=== PATIENT | female | born 1970 | race Caucasian/White ===

== ENCOUNTER 2017-09-19 13:00 | Outpatient (RCR) | payer OTHER ==
[2017-07-31 12:02] VITALS: BP 123/71
--- NOTE | 2017-08-02 09:51 | ONCOLOGY HISTORY AND PHYSICAL ---
DATE: July 31, 2017 CHIEF COMPLAINT Fatigue. HISTORY OF PRESENT ILLNESS Yenifer is a delightful 46-year-old female with metastatic estrogen receptor positive breast cancer, who has been followed by both Drs. Santizo and Dulce in the past. She lives here in [place], and she had recently expressed interest in following up for some routine visits as well as Xgeva injections here in [place], as opposed to driving to [facility] and back. The patient's oncologic history is below. Today, she reports that she feels pretty good, in general. She does have some ongoing fatigue, but this has been manageable. She denies significant pain. She has had no fever. Her appetite tends to be pretty good. She works significant hours at the hospital, and per her , she does not get much physical activity. Yenifer has been receiving Xeloda seven days on and seven days off, having started this regimen in mid June. REVIEW OF SYSTEMS Otherwise negative, and all systems are reviewed. ONCOLOGY HISTORY 1. Metastatic ER positive breast cancer. a. June 2009: Patient presents with left breast mass; biopsy on July 14, 2009 confirms malignancy. b. July 27, 2009: CT PET scan reveals a 2 cm hypermetabolic mass at the 3 o 'clock position in the left breast; no evidence of metastatic disease. c. July 29, 2009: Clip placement and port placement. d. July 2009: Patient initiates neoadjuvant Taxotere/cytoxan times four cycles. This was completed in September of 2009. e. October 27, 2009: Left breast lumpectomy/sentinel lymph node biopsy. Pathology reveals 1.6 cm invasive ductal carcinoma, intermediate histologic grade, high nuclear grade, also low grade DCIS comprising less than 5% of the lesion. There was no lymphovascular invasion. Margins were negative. All five sentinel lymph nodes were negative. Oncotype DX shows low risk of distant recurrence after five years; BCI study shows low likelihood of benefit from extended endocrine therapy. f. November,: Patient begins adjuvant radiation therapy, completed December 2009. g. December 2009: Patient begins adjuvant tamoxifen. Five years of treatment complete in 2014. h. July 30, 2017: Excisional biopsy of posterior scalp skin lesion. Pathology reveals poorly differentiated metastatic adenocarcinoma consistent with breast primary, ER positive 20%, WI positive at 71%, HER2 negative by IHC ( 1+). i. , 2017: CT PET: Interval development of extensive metastatic disease. j. July 02, 2017: Patient undergoes bilateral salpingo-oophorectomy for breast cancer treatment. k. July 09, 2017: Patient begins first-line capecitabine. l. July 16, 2017: Patient initiates denosumab injections. PAST MEDICAL HISTORY 1. Breast cancer, as above. 2. 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 3. Osteopenia. 4. Hyperparathyroidism. PAST SURGICAL HISTORY 1. Status post BSO on July 02, 2017. 2. Status post left lumpectomy and sentinel lymph node biopsy on October 27, 2009. 3. Status post port placement on July 29, 2009. 4. Status post left nephrectomy for Wilms tumor in 1975. CURRENT MEDICATIONS 1. Tylenol p.r.n. 2. Zyrtec p.r.n. 3. Singulair. 4. Cranberry tablet. 5. Calcium carbonate. 6. Vitamin D3. 7. [place]-3 fatty acids. 8. Multivitamin. ALLERGIES 1. Hydrocodone. 2. Acetaminophen. 3. Ibuprofen. 4. Terry wood. 5. Cat dander. 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 She is and lives in [place]. She has one daughter. She has never smoked cigarettes. She occasionally has a glass of wine. There is no history of illicit drug use. FAMILY HISTORY Patient reports that BRCA1/2 testing was negative in 2008. Her paternal aunt had reportedly of cancer in her late 30s or late 40s. There are no other first or second degree relatives with known cancers. VITAL SIGNS Temperature is 97.6, blood pressure 123/71, heart rate is 84, respirations 16, oxygen saturation is 94% on room air. Weight is 65.3 kg. PHYSICAL EXAMINATION GENERAL: Patient is alert and oriented times three, in no apparent distress sitting in the exam room chair. She is interactive and quite pleasant. HEENT: Exam reveals anicteric sclerae. NEUROLOGIC: Exam is grossly nonfocal and her gait is normal. EXTREMITIES: Exam reveals no edema, clubbing or cyanosis. There is no erythema or tenderness to palpation of the extremities. LABORATORY STUDIES Reviewed per the [facility] records. IMAGING Please see oncology history above. PATHOLOGY Please see oncology history above. ASSESSMENT AND PLAN Metastatic ER positive breast cancer. I had a good visit with Yenifer and her today. We spent time reviewing her oncologic history, as well as her recent experience after initiating palliative capecitabine. She seems to be tolerating treatment with reasonable/modest toxicity. She does report some ongoing fatigue. She is working long hours at the hospital. She is not getting much exercise, and we have discussed the importance of this, as well as healthful nutrition. We will be sure that arrangements are solid for her ongoing capecitabine, and we discussed her dosing scheme today. The dose will be escalated per Dr. Cradona, but the patient will be returning from [place] before that dosing increase happens. We will get her set for Xgeva injections here at [facility]. We spent a very significant amount of time today discussing her recent decision to have part of her follow-up care here in [place]. Her had expressed concern several times about quality of care and seeing a different medical oncologist. I believe I answered all of his questions to his satisfaction. The patient also had several further questions today, and I answered her questions as well. I will plan to see the patient back for followup in one month's time, or sooner if there are questions or concerns. Thank you very much, Dr. Cardona, for allowing me to take part in the care of this very pleasant patient. Please do not hesitate to call with any questions or concerns. I spent a total of 60 minutes of time face to face with the patient and her today. Fifty-five minutes of this was spent in direct counseling and coordination of care. LUIS
[2017-08-13 13:13] VITALS: BP 113/69
[2017-08-13 13:35] LABS: PLATELET COUNT, AUTOMATED 316 K/uL (150-450)
[~2017-09-19] VITALS: Ht 170.2 cm; Wt 65.3 kg
[~2017-09-19 13:00] MED LIST: ACET-1966 PO; ALB18R INH; ASP325 PO; ASPI81TA94 PO; CALC-18 PO; CETI-176 PO; CHOL500045 PO; CRAN500T; DOCU-416 PO; FLUT16SP19 NS; FLUT1BLS3 INH; LUTE6CAP11 PO; MONT10TA PO; MULT1CAP41 PO; OMEG500C5 PO; OMEP-218 PO; OXYC-865 PO; TAMO20TA19 PO
[2017-09-19] MEDS ORDERED: TRAZ150T8 PO (13:39)
[2017-09-19] MEDS ORDERED: DEXA2TAB7 PO (13:39)
[2017-10-22 13:59] LABS: PLATELET COUNT, AUTOMATED 296 K/uL (150-450)
== END 2017-10-28 ==
LOC: SPU 13:00
PROVIDERS: ATTEND Internal Medicine Medical Oncology
DX: Z85.3 Personal history of malignant neoplasm of breast (principal); R53.83 Other fatigue
CPT/HCPCS: 36415; 82040; 82247; 82310; 82374; 82435; 82565; 82947; 83735; 84075; 84100; 84132; 84155; 84295; 84450; 84460; 84520; 85025; 86300; 86304; 99202

== ENCOUNTER → 2017-10-22 | Outpatient (CLI) | payer OTHER ==
[~2017-10-22] MED LIST changes: +DENOSUMAB 120 MG/1.7 ML VIAL SUBQ ONE; +DEXA2TAB7 PO; +TRAZ150T8 PO
[2017-10-22 14:08] VITALS: BP 112/78
== END ==
LOC: SPU 11:28
PROVIDERS: ATTEND Internal Medicine Medical Oncology
DX: C50.912 Malignant neoplasm of unspecified site of left female breast (principal)
CPT/HCPCS: 36415; 96372; J0897

== ENCOUNTER → 2017-11-21 | Outpatient (CLI) | payer OTHER ==
[~2017-11-21] MED LIST changes: -DENOSUMAB 120 MG/1.7 ML VIAL SUBQ ONE
[2017-11-21 13:30] LABS: PLATELET COUNT, AUTOMATED 282 K/uL (150-450)
== END ==
LOC: SPU 07:40
PROVIDERS: ATTEND Internal Medicine Hematology & Oncology
DX: C50.412 Malignant neoplasm of upper-outer quadrant of left female breast (principal); C79.51 Secondary malignant neoplasm of bone; C77.1 Secondary and unspecified malignant neoplasm of intrathoracic lymph nodes
CPT/HCPCS: 36415; 82040; 82247; 82310; 82374; 82435; 82565; 82947; 83735; 84075; 84100; 84132; 84155; 84295; 84450; 84460; 84520; 85025; 86300; 86304

== ENCOUNTER → 2017-11-21 | Outpatient (CLI) | payer OTHER ==
[2017-10-22 14:08] VITALS: BP 112/78
[~2017-11-21] MED LIST changes: +DENOSUMAB 120 MG/1.7 ML VIAL SUBQ ONE
== END ==
LOC: SPU 07:38
PROVIDERS: ATTEND Internal Medicine Hematology & Oncology
DX: C50.919 Malignant neoplasm of unspecified site of unspecified female breast (principal)
CPT/HCPCS: 96372; J0897

== ENCOUNTER → 2017-12-19 | Outpatient (CLI) | payer OTHER ==
[2017-10-22 14:08] VITALS: BP 112/78
[~2017-12-19] MED LIST changes: +XELOD500PT PO
== END ==
LOC: SPU 08:08
PROVIDERS: ATTEND Internal Medicine Hematology & Oncology
DX: C50.919 Malignant neoplasm of unspecified site of unspecified female breast (principal)
CPT/HCPCS: 96372; J0897

== ENCOUNTER → 2018-01-23 | Outpatient (CLI) | payer OTHER ==
[~2018-01-23] MED LIST changes: +MELA1TAB15 PO; +MV M PO; +TURM500C7 PO; +UBID1CAP94 PO
[2018-01-23 13:33] VITALS: BP 101/54
== END ==
LOC: SPU 08:01
PROVIDERS: ATTEND Internal Medicine Medical Oncology
DX: C50.919 Malignant neoplasm of unspecified site of unspecified female breast (principal); C79.9 Secondary malignant neoplasm of unspecified site
CPT/HCPCS: 96372; J0897

== ENCOUNTER → 2018-01-23 | Outpatient (CLI) | payer OTHER ==
[~2018-01-23] MED LIST changes: -DENOSUMAB 120 MG/1.7 ML VIAL SUBQ ONE
[2018-01-23 13:36] LABS: PLATELET COUNT, AUTOMATED 294 K/uL (150-450)
== END ==
LOC: SPU 08:01
PROVIDERS: ATTEND Internal Medicine Hematology & Oncology
DX: C50.412 Malignant neoplasm of upper-outer quadrant of left female breast (principal); C79.51 Secondary malignant neoplasm of bone; C77.1 Secondary and unspecified malignant neoplasm of intrathoracic lymph nodes
CPT/HCPCS: 36415; 82040; 82247; 82310; 82374; 82435; 82565; 82947; 83735; 84075; 84100; 84132; 84155; 84295; 84450; 84460; 84520; 85025; 86300; 86304

== ENCOUNTER 2018-02-20 13:00 | Outpatient (RCR) | payer OTHER ==
[2017-12-19 13:23] VITALS: BP 110/76
[2017-12-19 13:30] LABS: PLATELET COUNT, AUTOMATED 282 K/uL (150-450)
[2018-01-15 13:07] VITALS: BP 120/72
--- NOTE | 2018-01-16 03:59 | ONCOLOGY FOLLOW UP NOTE ---
EVENT DATE: January 15, 2018 REASON FOR FOLLOWUP Metastatic ER positive breast cancer. INTERIM HISTORY Yenifer returns to clinic for a followup visit today. She is accompanied by her . She reports that since our last visit, things have been going pretty well in general. She does have some ongoing fatigue. She continues to work as a counselor. She reports no fevers, chills or sweats. In general, her appetite has been pretty good, and her weight has been stable. She reports no shortness of breath, chest pain or cough. She has had no changes in her bowel habits, denies new urinary symptoms. She continues on capecitabine as well as Xgeva. She has been followed in the interim by Dr. Cardona at the [facility] in [place]. Since our last visit, she had undergone followup imaging, which showed a very nice response to therapy. She has been encouraged by this. She reports that she thinks she is tolerating the Xeloda without any significant problems. REVIEW OF SYSTEMS Otherwise negative, and all systems are reviewed. ONCOLOGY HISTORY 1. Metastatic ER positive breast cancer. a. June 2009: Patient presents with left breast mass; biopsy on July 14, 2009 confirms malignancy. b. July 27, 2009: CT PET scan reveals a 2 cm hypermetabolic mass at the 3 o 'clock position in the left breast; no evidence of metastatic disease. c. July 29, 2009: Clip placement and port placement. d. July 2009: Patient initiates neoadjuvant Taxotere/Cytoxan times four cycles. This was completed in September of 2009. e. October 27, 2009: Left breast lumpectomy/sentinel lymph node biopsy. Pathology reveals 1.6 cm invasive ductal carcinoma, intermediate histologic grade, high nuclear grade, also low grade DCIS comprising less than 5% of the lesion. There was no lymphovascular invasion. Margins were negative. All five sentinel lymph nodes were negative. Oncotype DX shows low risk of distant recurrence after five years; BCI study shows low likelihood of benefit from extended endocrine therapy. f. November,: Patient begins adjuvant radiation therapy, completed December 2009. g. December 2009: Patient begins adjuvant tamoxifen. Five years of treatment complete in 2014. h. July 30, 2017: Excisional biopsy of posterior scalp skin lesion. Pathology reveals poorly differentiated metastatic adenocarcinoma consistent with breast primary, ER positive 20%, [place] positive at 71%, HER2 negative by IHC ( 1+). i. , 2017: CT PET: Interval development of extensive metastatic disease. j. July 02, 2017: Patient undergoes bilateral salpingo-oophorectomy for breast cancer treatment. k. July 09, 2017: Patient begins first-line capecitabine. l. July 16, 2017: Patient initiates denosumab injections. PAST MEDICAL HISTORY 1. Breast cancer, as above. 2. 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 3. Osteopenia. 4. Hyperparathyroidism. PAST SURGICAL HISTORY 1. Status post BSO on July 02, 2017. 2. Status post left lumpectomy and sentinel lymph node biopsy on October 27, 2009. 3. Status post port placement on July 29, 2009. 4. Status post left nephrectomy for Wilms tumor in 1975. CURRENT MEDICATIONS 1. Xeloda. 2. Trazodone. 3. Tylenol p.r.n. 4. Zyrtec p.r.n. 5. Singulair. 6. Cranberry tablet. 7. Calcium. 8. Vitamin D3. 9. Fish oil. 10. Multivitamin. ALLERGIES HYDROCODONE, IBUPROFEN, CEDAR WOOD, CAT DANDER. 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 She is and lives in [place]. She has one daughter. She has never smoked cigarettes. She occasionally has a glass of wine. There is no history of illicit drug use. FAMILY HISTORY Patient reports that BRCA1/2 testing was negative in 2008. Her paternal aunt had reportedly of cancer in her late 30s or late 40s. There are no other first or second degree relatives with known cancers. VITAL SIGNS Temperature is 96.7, blood pressure 120/72, heart rate is 79, respirations 16, oxygen saturation is 96% on room air. Weight is 66 kg. PHYSICAL EXAMINATION GENERAL: Patient is alert and oriented x 3, in no apparent distress sitting in the exam room chair. She is interactive and quite pleasant. HEENT: Exam reveals anicteric sclerae. NEUROLOGIC: Exam is grossly nonfocal and her gait is normal. EXTREMITIES: Exam reveals no edema, clubbing or cyanosis. There is no erythema or tenderness to palpation of the extremities. SKIN: Exam reveals no concerning rash or lesion. LABORATORY STUDIES Laboratory studies are reviewed per the [facility] records. ASSESSMENT AND PLAN Metastatic ER positive breast cancer. Yenifer continues to do quite well with ongoing palliative capecitabine as well as denosumab. she reports no new concerning symptoms today. She has had no hand/foot syndrome, and her gastrointestinal symptoms have been minimal. She continues to work. We discussed her prior followup with Dr. Cardona, as well as re-imaging, which has revealed a very nice response to ongoing treatment. As discussed, I would be more than happy to visit with her in the future to make sure things are going well, and to try to minimize travel back and forth between [place] and [place]. Yenifer requests that we visit again in April, as she does have re- imaging scheduled for February. We spent time reviewing her labs today, including tumor markers. We discussed the slight rise, and that this at this point is not a particular trend, but we will continue to monitor her labs closely. I do not think that this is reason to move up her re-imaging. We also discussed the importance of good nutrition and exercise. [facility]
[~2018-02-20 13:00] MED LIST changes: -DENOSUMAB 120 MG/1.7 ML VIAL SUBQ ONE
[2018-02-20 13:09] VITALS: BP 110/76
[2018-02-20 13:28] LABS: PLATELET COUNT, AUTOMATED 258 K/uL (150-450)
== END 2018-03-18 ==
LOC: SPU 13:00
PROVIDERS: ATTEND Internal Medicine Medical Oncology
DX: C50.412 Malignant neoplasm of upper-outer quadrant of left female breast (principal); Z17.0 Estrogen receptor positive status [ER+]; R53.83 Other fatigue; Z79.899 Other long term (current) drug therapy; Z92.21 Personal history of antineoplastic chemotherapy
CPT/HCPCS: 36415; 82040; 82247; 82310; 82374; 82435; 82565; 82947; 83735; 84075; 84100; 84132; 84155; 84295; 84450; 84460; 84520; 85025; 86300; 86304

== ENCOUNTER → 2018-02-20 | Outpatient (CLI) | payer OTHER ==
[~2018-02-20] MED LIST changes: +DENOSUMAB 120 MG/1.7 ML VIAL SUBQ ONE
== END ==
LOC: SPU 07:42
PROVIDERS: ATTEND Internal Medicine Medical Oncology
DX: C50.912 Malignant neoplasm of unspecified site of left female breast (principal)
CPT/HCPCS: 96372; J0897

== ENCOUNTER → 2018-03-25 | Outpatient (CLI) | payer OTHER ==
[~2018-03-25] MED LIST changes: +DENOSUMAB 120 MG/1.7 ML VIAL SUBQ ONE
== END ==
LOC: SPU 08:09
PROVIDERS: ATTEND Internal Medicine Medical Oncology
DX: C50.912 Malignant neoplasm of unspecified site of left female breast (principal)
CPT/HCPCS: 96372; J0897

== ENCOUNTER → 2018-04-22 | Outpatient (CLI) | payer OTHER ==
[2018-04-22 13:46] LABS: PLATELET COUNT, AUTOMATED 264 K/uL (150-450)
== END ==
LOC: SPU 04-21 09:22
PROVIDERS: ATTEND Internal Medicine Medical Oncology
DX: C50.919 Malignant neoplasm of unspecified site of unspecified female breast (principal); C79.9 Secondary malignant neoplasm of unspecified site
CPT/HCPCS: 83735; 84100; 85025; 86300; 86304; 96372; J0897; 82040; 82247; 82310; 82374; 82435; 82565; 82947; 84075; 84132; 84155; 84295; 84450; 84460; 84520

== ENCOUNTER 2018-05-21 13:00 | Outpatient (RCR) | payer OTHER ==
[2018-03-25 13:51] VITALS: BP 101/50
[2018-03-25 13:52] LABS: PLATELET COUNT, AUTOMATED 241 K/uL (150-450)
[2018-04-22 15:15] VITALS: BP 111/73
[~2018-05-21 13:00] MED LIST changes: -DENOSUMAB 120 MG/1.7 ML VIAL SUBQ ONE; -LORA-809 PO
[2018-05-21 13:11] VITALS: BP 118/83
[2018-05-21] MEDS ORDERED: LORA-809 PO (13:14)
[2018-05-21 13:29] LABS: PLATELET COUNT, AUTOMATED 264 K/uL (150-450)
--- NOTE | 2018-05-21 23:16 | ONCOLOGY FOLLOW UP NOTE ---
EVENT DATE: May 21, 2018 REASON FOR FOLLOWUP Metastatic, ER-positive breast cancer. INTERIM HISTORY Yenifer returns to clinic for a followup visit today. She is taking time off work to come in for this visit. She reports that things have been going pretty well in general. 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 She does report some ongoing fatigue with chemotherapy and that she does tend to "crash" at times on the weekend. She reports no significant nausea. She has had no changes in her bowel habits. She reports being quite gassy at times and that she has had loose stools that have not been particularly problematic. She does use Imodium from time to time. She reports a cough and that this has been irritating over the past couple weeks. She has had no significant GERD. She does report that she has had some sinus congestion, especially when she works. She wonders if this might be causing the cough. She reports no chest pain. The cough has been minimally productive, and she has had no hemoptysis. She reports no palpitations or shortness of breath. ONCOLOGY HISTORY Metastatic, ER-positive breast cancer. a. June 2009: Patient presents with left breast mass; biopsy on July 14, 2009 confirms malignancy. b. July 27, 2009: CT PET scan reveals a 2 cm hypermetabolic mass at the 3 o' clock position in the left breast; no evidence of metastatic disease. c. July 29, 2009: Clip placement and port placement. d. July 2009: Patient initiates neoadjuvant Taxotere/Cytoxan times four cycles. This was completed in September of 2009. e. October 27, 2009: Left breast lumpectomy/sentinel lymph node biopsy. Pathology reveals 1.6 cm invasive ductal carcinoma, intermediate histologic grade, high nuclear grade, also low grade DCIS comprising less than 5% of the lesion. There was no lymphovascular invasion. Margins were negative. All five sentinel lymph nodes were negative. Oncotype DX shows low risk of distant recurrence after five years; BCI study shows low likelihood of benefit from extended endocrine therapy. f. November,: Patient begins adjuvant radiation therapy, completed December 2009. g. December 2009: Patient begins adjuvant tamoxifen. Five years of treatment complete in 2014. h. July 30, 2017: Excisional biopsy of posterior scalp skin lesion. Pathology reveals poorly differentiated metastatic adenocarcinoma consistent with breast primary, ER positive 20%, [place] positive at 71%, HER2 negative by IHC ( 1+). i. , 2017: CT PET: Interval development of extensive metastatic disease. j. July 02, 2017: Patient undergoes bilateral salpingo-oophorectomy for breast cancer treatment. k. July 09, 2017: Patient begins first-line capecitabine. l. July 16, 2017: Patient initiates denosumab injections. m. February 2018: CT PET scan reveals no evidence of hypermetabolic disease. PAST MEDICAL HISTORY 1. Breast cancer, as above. 2. 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 3. Osteopenia. 4. Hyperparathyroidism. PAST SURGICAL HISTORY 1. Status post BSO on July 02, 2017. 2. Status post left lumpectomy and sentinel lymph node biopsy on October 27, 2009. 3. Status post port placement on July 29, 2009. 4. Status post left nephrectomy for Wilms tumor in 1975. CURRENT MEDICATIONS 1. Xeloda. 2. Trazodone. 3. Tylenol p.r.n. 4. Zyrtec p.r.n. 5. Singulair. 6. Cranberry tablet. 7. Calcium. 8. Vitamin D3. 9. Fish oil. 10. Multivitamin. ALLERGIES HYDROCODONE, IBUPROFEN, CEDAR WOOD, CAT DANDER. 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 She has one daughter. She has never smoked cigarettes. She occasionally has a glass of wine. There is no history of illicit drug use. FAMILY HISTORY Patient reports that BRCA1/2 testing was negative in 2008. Her paternal aunt had reportedly of cancer in her late 30s or late 40s. There are no other first or second degree relatives with known cancers. VITAL SIGNS Temperature is 97.8, blood pressure 118/83, heart rate is 80, respirations 16, oxygen saturation is 96% on room air. PHYSICAL EXAMINATION GENERAL: Patient is alert and oriented times three, no apparent distress, sitting in the exam room chair. She appears healthy. She is quite interactive and quite pleasant. HEENT: Anicteric sclerae. LUNGS: Clear to auscultation bilaterally. NEUROLOGIC: Grossly nonfocal, and her gait is normal. EXTREMITIES: No edema, clubbing, or cyanosis. LABORATORY STUDIES Reviewed per the [facility] and [facility] records. IMAGING Please see oncology history. ASSESSMENT AND PLAN Metastatic ER-positive breast cancer. I had a good visit with Yenifer today. Symptomatically, she continues to do pretty well with ongoing palliative capecitabine. She also continues on Xgeva injections. Her quality of life is good in general, and she has been quite busy with work. We discussed the issues that she has had over time with her bowel habits. She has used Imodium from time to time, and this has largely taken care of the problem. She has no signs or symptoms today to suggest significant progression of her metastatic breast cancer, but she has developed another irritating cough. We discussed the possibilities for this. My first suspicion would be for some sinus congestion and postnasal drip. We discussed the merits of re-imaging of the chest with a CT scan. After further discussion, we have decided to hold off for the next week or two. If her symptoms persist or worsen, she will call either myself or Dr. Cardona. We will consider repeat imaging at that time. We spent time reviewing her laboratory studies. Her tumor markers continue to fall slightly in keeping with her recent CT PET scan findings. Yenifer had quite a few questions today about clinical research, immunotherapy, and several trials that she had read about. She is curious about her eligibility. We spent a good deal of time today discussing clinical research and that I would certainly want her to follow up with Dr. Cardona for specific recommendations in this regard. I would not, however, recommend a clinical trial search at this point as she has had an excellent response to Xeloda, and her tolerance is good. She expresses understanding. I spent a total of 30 minutes of time [id number] with the patient today, and 25 minutes of this were spent in direct counseling and coordination of care. LUIS
== END 2018-05-22 14:40 | disposition home or self-care (01) ==
LOC: ONC 13:00
PROVIDERS: ATTEND Internal Medicine Medical Oncology
DX: C50.412 Malignant neoplasm of upper-outer quadrant of left female breast (principal); C79.51 Secondary malignant neoplasm of bone; C77.1 Secondary and unspecified malignant neoplasm of intrathoracic lymph nodes
CPT/HCPCS: 36415; 82040; 82247; 82310; 82374; 82435; 82565; 82947; 83735; 84075; 84100; 84132; 84155; 84295; 84450; 84460; 84520; 85025; 86300; 86304; 99212

== ENCOUNTER → 2018-05-21 | Outpatient (CLI) | payer OTHER ==
[~2018-05-21] MED LIST changes: +LORA-809 PO
[2018-05-21 14:08] VITALS: BP 109/81
== END ==
LOC: SPU 07:35
PROVIDERS: ATTEND Internal Medicine Medical Oncology
DX: C50.919 Malignant neoplasm of unspecified site of unspecified female breast (principal)
CPT/HCPCS: 96372; J0897

== ENCOUNTER → 2018-06-26 | Outpatient (CLI) | payer OTHER ==
[~2018-06-26] MED LIST changes: +DENOSUMAB 120 MG/1.7 ML VIAL SUBQ ONE; +LORA-809 PO
== END ==
LOC: SPU 07:42
PROVIDERS: ATTEND Internal Medicine Medical Oncology
DX: C50.919 Malignant neoplasm of unspecified site of unspecified female breast (principal); C79.9 Secondary malignant neoplasm of unspecified site
CPT/HCPCS: 96372; J0897

== ENCOUNTER → 2018-07-24 | Outpatient (CLI) | payer OTHER | LOC: SPU 08:00 | PROVIDERS: ATTEND Internal Medicine Medical Oncology | DX: C50.412 Malignant neoplasm of upper-outer quadrant of left female breast (principal) | CPT/HCPCS: 96372; J0897 ==

== ENCOUNTER 2018-09-02 13:00 | Outpatient (RCR) | payer OTHER ==
[2018-06-26 13:10] VITALS: BP 101/68
[2018-06-26 13:25] LABS: PLATELET COUNT, AUTOMATED 277 K/uL (150-450)
[2018-07-24 13:11] VITALS: BP 113/75
[2018-07-24 13:25] LABS: PLATELET COUNT, AUTOMATED 266 K/uL (150-450)
[~2018-09-02 13:00] MED LIST changes: -DENOSUMAB 120 MG/1.7 ML VIAL SUBQ ONE
[2018-09-02 13:47] VITALS: BP 111/70
[2018-09-02] MEDS ORDERED: DENOSUMAB 120 MG/1.7 ML VIAL SUBQ ONE (13:55)
== END 2018-09-23 ==
LOC: SPU 13:00
PROVIDERS: ATTEND Internal Medicine Medical Oncology
DX: C50.412 Malignant neoplasm of upper-outer quadrant of left female breast (principal); C79.51 Secondary malignant neoplasm of bone; C77.1 Secondary and unspecified malignant neoplasm of intrathoracic lymph nodes
CPT/HCPCS: 36415; 83735; 84100; 85025; 86300; 86304; 96361; 96372; 96374; 99283; J0897; 82040; 82247; 82310; 82374; 82435; 82565; 82947; 84075; 84132; 84155; 84295; 84450; 84460; 84520

== ENCOUNTER → 2018-09-02 | Outpatient (CLI) | payer OTHER ==
[2018-09-02 13:43] LABS: PLATELET COUNT, AUTOMATED 309 K/uL (150-450)
== END ==
LOC: SPU 05:55
PROVIDERS: ATTEND Internal Medicine Hematology & Oncology
DX: C50.412 Malignant neoplasm of upper-outer quadrant of left female breast (principal); C79.51 Secondary malignant neoplasm of bone; C77.1 Secondary and unspecified malignant neoplasm of intrathoracic lymph nodes
CPT/HCPCS: 82040; 82247; 82310; 82374; 82435; 82565; 82947; 83735; 84075; 84100; 84132; 84155; 84295; 84450; 84460; 84520; 85025; 86300; 86304

== ENCOUNTER 2018-10-02 13:30 | Outpatient (RCR) | payer OTHER | END 2018-10-02 15:31 | disposition home or self-care (01) | LOC: SPU 13:30 | PROVIDERS: ATTEND Internal Medicine Medical Oncology | DX: C50.412 Malignant neoplasm of upper-outer quadrant of left female breast (principal); C79.51 Secondary malignant neoplasm of bone; C77.1 Secondary and unspecified malignant neoplasm of intrathoracic lymph nodes | CPT/HCPCS: 36415 ==

== ENCOUNTER → 2018-11-27 | Outpatient (CLI) | payer OTHER ==
[~2018-11-27] MED LIST changes: +DENOSUMAB 120 MG/1.7 ML VIAL SUBQ ONE
== END ==
LOC: SPU 13:23
PROVIDERS: ATTEND Internal Medicine Hematology & Oncology
DX: C50.912 Malignant neoplasm of unspecified site of left female breast (principal); C79.9 Secondary malignant neoplasm of unspecified site
CPT/HCPCS: 96372; J0897

== ENCOUNTER 2018-12-25 13:00 | Outpatient (RCR) | payer OTHER ==
[2018-10-02 14:45] LABS: PLATELET COUNT, AUTOMATED 282 K/uL (150-450)
[2018-10-30 13:14] VITALS: BP 111/60
[2018-10-30 13:31] LABS: PLATELET COUNT, AUTOMATED 296 K/uL (150-450)
--- NOTE | 2018-11-12 08:40 | NUR ---
SW verified with pt's HR that her FMLA will in July 2019.
[2018-11-27 13:11] VITALS: BP 116/70
[2018-11-27 13:32] LABS: PLATELET COUNT, AUTOMATED 299 K/uL (150-450)
[~2018-12-25 13:00] MED LIST changes: -DENOSUMAB 120 MG/1.7 ML VIAL SUBQ ONE
[2018-12-25 13:23] VITALS: BP 126/80
[2018-12-25 13:29] LABS: PLATELET COUNT, AUTOMATED 326 K/uL (150-450)
== END 2018-12-31 ==
LOC: SPU 13:00
PROVIDERS: ATTEND Internal Medicine Hematology & Oncology
DX: C50.412 Malignant neoplasm of upper-outer quadrant of left female breast (principal); C79.51 Secondary malignant neoplasm of bone; C77.1 Secondary and unspecified malignant neoplasm of intrathoracic lymph nodes; Z17.0 Estrogen receptor positive status [ER+]; C79.31 Secondary malignant neoplasm of brain
CPT/HCPCS: 36415; 82040; 82247; 82310; 82374; 82435; 82565; 82947; 83735; 84075; 84100; 84132; 84155; 84295; 84450; 84460; 84520; 85025; 86300; 86304

== ENCOUNTER → 2019-02-19 | Outpatient (CLI) | payer OTHER ==
[~2019-02-19] MED LIST changes: +CALC-852 PO; +DENOSUMAB 120 MG/1.7 ML VIAL SUBQ ONE; +turkey tail mushroom PO
[2019-02-19 14:07] VITALS: BP 108/67
== END ==
LOC: SPU 12:55
PROVIDERS: ATTEND Internal Medicine Hematology & Oncology
DX: C50.919 Malignant neoplasm of unspecified site of unspecified female breast (principal); C79.9 Secondary malignant neoplasm of unspecified site
CPT/HCPCS: 96372; J0897

== ENCOUNTER 2019-03-19 09:00 | Outpatient (RCR) | payer OTHER ==
[2019-01-22 13:16] VITALS: BP 110/77
[2019-01-22 13:36] LABS: PLATELET COUNT, AUTOMATED 300 K/uL (150-450)
[2019-02-19 14:24] LABS: PLATELET COUNT, AUTOMATED 272 K/uL (150-450)
[~2019-03-19 09:00] MED LIST changes: -CALC-852 PO; -DENOSUMAB 120 MG/1.7 ML VIAL SUBQ ONE; -turkey tail mushroom PO
[2019-03-19 13:46] LABS: PLATELET COUNT, AUTOMATED 268 K/uL (150-450)
[2019-03-19 13:50] VITALS: BP 112/77
[2019-04-01] MEDS ORDERED: CALC-852 PO (16:01)
[2019-04-01] MEDS ORDERED: turkey tail mushroom PO (16:02)
== END 2019-04-21 ==
LOC: SPU 09:00
PROVIDERS: ATTEND Internal Medicine Hematology & Oncology
DX: C50.412 Malignant neoplasm of upper-outer quadrant of left female breast (principal); C79.51 Secondary malignant neoplasm of bone; C77.1 Secondary and unspecified malignant neoplasm of intrathoracic lymph nodes; Z17.0 Estrogen receptor positive status [ER+]; C79.31 Secondary malignant neoplasm of brain
CPT/HCPCS: 36415; 82040; 82247; 82310; 82374; 82435; 82565; 82947; 83735; 84075; 84100; 84132; 84155; 84295; 84450; 84460; 84520; 85025; 86300; 86304

== ENCOUNTER → 2019-05-12 | Outpatient (CLI) | payer OTHER ==
[~2019-05-12] MED LIST changes: +ABEM100T PO; +CALC-852 PO; +DENOSUMAB 120 MG/1.7 ML VIAL SUBQ ONE; +LETR2.5T4 PO; +[UNRECOGNIZED DRUG - OTHER] PO; +turkey tail mushroom PO
[2019-05-12 13:10] VITALS: BP 122/76
== END ==
LOC: SPU 12:26
PROVIDERS: ATTEND Internal Medicine Hematology & Oncology
DX: C50.919 Malignant neoplasm of unspecified site of unspecified female breast (principal)
CPT/HCPCS: 96372; J0897